=== PATIENT | female | born 2000 | race Caucasian/White ===

== ENCOUNTER 2024-09-01 21:21 | Emergency (ER) | payer OTHER, SELFPAY ==
[2024-09-01 21:26] VITALS: BP 136/87; PULSE 85; RESP 16; TEMP 36.8; O2SAT 99; BMI 25.7
[2024-09-01 21:55] LABS: Basophils # 0.1 10^3/uL (0.0-0.1); Basophils % 0.5 %; Eosinophils # 0.2 10^3/uL (0.0-0.8); Eosinophils % 1.6 %; Hematocrit 40.7 % (36-47); Lymphocytes # 2.7 10^3/uL (0.8-4.8); Lymphocytes % 25.7 %; Mean Corpuscular HGB Conc 32.7 g/dL (30-55); Mean Corpuscular Hemoglobin 28.9 pg (27-33); Mean Corpuscular Volume 88.3 fl (85-98); Mean Platelet Volume 10.5 fL (7.4-10.4); Monocytes # 0.8 10^3/uL (0.2-0.9); Monocytes % 7.9 %; Neutrophils % 63.9 %; Nucleated Red Blood Cells % 0 %; Platelet Count 332 10^3/cmm (157-399); Red Blood Count 4.61 10^6/uL (3.85-5.65); White Blood Count 10.48 10^3/uL (3.29-11.43)
[2024-09-01] MEDS: cefTRIAXone 1,000 mg SDV 1000 MG IVP (21:57)
[2024-09-01 22:00] VITALS: BP 97/53; PULSE 59; RESP 16; O2SAT 100
--- NOTE | 2024-09-01 22:23 | ED_ITS ---
HPI - Animal Bite 2 General: Chief Complaint: Animal Bite Stated Complaint: cat bite left hand Time Seen by Provider: 09/01/24 21:28 Source: patient Mode of arrival: ambulatory Limitations: no limitations History of Present Illness: Patient is a 24-year-old female presenting to the emergency department complaining of cat bite that occurred couple days ago. 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 Patient was seen in urgent care and started on Augmentin, however states that she has a history of resistance to Augmentin in the past and the infection spread to where she needed to come into the hospital for IV antibiotics. She is concerned of the amount of pain and swelling currently, the bite is to the palmar aspect of the left MCP of the second finger. She is denying any fever, nausea vomiting, or other symptoms at this time. Vitals normal at this time. complaint: animal bite Onset (ago): day(s) Animal: cat Description of animal: immunizations UTD Mechanism: bite Location - Extremities: Left: hand Context: other (Examining animal for vet school) Associated symptoms: Deny chills, fever(s) or headache(s) Related Data Allergies Allergy/AdvReac Type Severity Reaction Status Date / Time No Known Allergies Allergy Verified 09/01/24 21:32 Review of Systems 2 General: Reports: 10 or more systems reviewed and unremarkable except in HPI and below Const: Denies: fever(s) or chills Card: Denies: chest pain Resp: Denies: dyspnea GI: Denies: abdominal pain, nausea, vomiting or diarrhea Musc: Denies: extremity pain or joint pain Skin/Breast: Reports: skin pain, skin swelling and non-healing lesions (Cat bite to left hand); Denies: rash Neuro: Denies: headache(s) [facility] ED 2 Female Reproductive History: Date of last menstrual period: 08/18/24 Physical Exam 2 Const: COMMON NORMALS: no acute distress, average body habitus, patient oriented x3, no limitations, healthy appearing, alert and well nourished HENMT: COMMON NORMALS: normocephalic and atraumatic HEAD & SCALP: n ormocephalic and atraumatic Neck/C-Spine: COMMON NORMALS: full ROM, no lymphadenopathy, supple and no meningeal signs Resp: COMMON NORMALS: normal respiratory effort, No use of accessory muscles and clear to auscultation bilaterally AUSCULTATION: clear to auscultation bilaterally Cardio: COMMON NORMALS: regular rate and regular rhythm RATE: regular rate RHYTHM: regular rhythm Extremity: COMMON NORMALS: full ROM and capillary refill normal Neuro: COMMON NORMALS: patient oriented x3 SENSORIUM/ORIENTATION: Yes alert MENINGEAL SIGNS: Yes no meningeal signs Skin: COMMON NORMALS: turgor normal NARRATIVE SKIN EXAM: Small linear wound to palmar aspect of left second MCP. Surrounding erythema, no palpable fluctuance. No active draining at this time. area is tender to palpation. No red streaking proximally. GENERAL SKIN EXAM: turgor normal Course 2 Vital Signs: Vital signs: Vital Signs Temperature 98.2 F 09/01/24 21:26 Pulse Rate 59 L 09/01/24 22:00 Respiratory Rate 16 09/01/24 22:00 Blood Pressure 97/53 09/01/24 22:00 Pulse Oximetry 100 09/01/24 22:00 Oxygen Delivery Me thod Room Air 09/01/24 22:00 MDM - Animal Bite Medical Decision Making Patient was bit by cat a couple days ago started on Augmentin. Was concerned of the amount of pain and swelling, also reported a history of needing IV antibiotics. At this time her lab work is unremarkable, there are no concerning signs of an abscess, and no reason for admission for IV antibiotics will continue outpatient therapy as she is technically not felt this as well due to only having a couple of days worth of the antibiotics. However with any worsening she is instructed to return for further evaluation. She endorses understanding will be discharged home at this time. Her vitals have been stable throughout ED course. Lab Data 09/01/24 21:49 09/01/24 21:49 Laboratory Results WBC 10.48 10^3/uL (3.29-11.43) 09/01/24 21:49 RBC 4.61 10^6/uL (3.85-5.65) 09/01/24 21:49 Hgb 13.30 g/dL (11.27-16.99) 09/01/24 21:49 Hct 40.7 % (36-47) 09/01/24 21:49 MCV 88.3 fl (85-98) 09/01/24 21:49 MCH 28.9 pg (27-33) 09/01/24 21:49 MCHC 32.7 g/dL (30-55) 09/01/24 21:49 RDW 13.0 % (12.1-15.1) 09/01/24 21:49 Plt Count 332 10^3/cmm (157-399) 09/01/24 21:49 MPV 10.5 fL (7.4-10.4) H 09/01/24 21:49 Neut % (Auto) 63.9 % 09/01/24 21:49 Lymph % (Auto) 25.7 % 09/01/24 21:49 [place] % (Auto) 7.9 % 09/01/24 21:49 Eos % (Auto) 1.6 % 09/01/24 21:49 Baso % (Auto) 0.5 % 09/01/24 21:49 Neut # (Auto) 6.70 10^3/uL (1.8-7.7) 09/01/24 21:49 Lymph # (Auto) 2.7 10^3/uL (0.8-4.8) 09/01/24 21:49 [place] # (Auto) 0.8 10^3/uL (0.2-0.9) 09/01/24 21:49 Eos # (Auto) 0.2 10^3/uL (0.0-0.8) 09/01/24 21:49 Baso # (Auto) 0.1 10^3/uL (0.0-0.1) 09/01/24 21:49 Nucleated RBC % (auto) 0 % 09/01/24 21:49 Nucleated RBCs # 0.0 /100WBC 09/01/24 21:49 Sodium 138 mmol/L (136-145) 09/01/24 21:49 Potassium 3.9 mmol/L (3.5-5.1) 09/01/24 21:49 Chloride 102 mmol/L (98-107) 09/01/24 21:49 Carbon Dioxide 26 mmol/L (22-29) 09/01/24 21:49 Anion Gap 13.9 (5-19) 09/01/24 21:49 BUN 10 mg/dL (6-20) 09/01/24 21:49 Creatinine 0.6 mg/dL (0.5-0.9) 09/01/24 21:49 GFR Calculation 121.8 mL/min (90-130) 09/01/24 21:49 Glucose 105 mg/dL (65-115) 09/01/24 21:49 Calculated Osmolality 285 mOsm/kg (285-295) 09/01/24 21:49 Lactic Acid 1.2 mmol/L (0.5-2.2) 09/01/24 21:49 Calcium 9.2 mg/dL (8.5-10.5) 09/01/24 21:49 Total Bilirubin 0.3 mg/dL (0.15-1.2) 09/01/24 21:49 AST 36 U/L (0-32) H 09/01/24 21:49 ALT 30 U/L (0-33) 09/01/24 21:49 Alkaline Phosphatase 96 U/L (35-105) 09/01/24 21:49 C-Reactive Protein 5.7 mg/L (0.0-4.9) H 09/01/24 21:49 Total Protein 7.2 g/dL (6.6-8.7) 09/01/24 21:49 Albumin 4.7 g/dL (3.5-5.2) 09/01/24 21:49 Globulin 2.5 g/dL (1.3-4.6) 09/01/24 21:49 No radiology studies performed this visit Discharge Plan Discharge Patient Disposition: Home Clinical Impression: Cat bite Condition: Stable Discharge Orders: Discharge ED (Routine); Ordered 09/01/24 Ordered By: Lambert Hernandez Patient Instructions: Animal Bite (ED) Activity Restrictions/Additional Instructions: Continue taking your Augmentin. If pain is persisting, swelling increases, you notice red streaking, or you have other concerning signs or symptoms please return as discussed. Continue applying ice and taking Tylenol/ibuprofen for pain. Coding Level of Care Code ED Regional Sales Manager for Jarek Pruitt
[2024-09-01 22:24] LABS: Alanine Aminotransferase 30 U/L (0-33); Albumin Level 4.7 g/dL (3.5-5.2); Alkaline Phosphatase 96 U/L (35-105); Anion Gap 13.9 (5-19); Aspartate Amino Transferase 36 U/L (0-32); Blood Urea Nitrogen 10 mg/dL (6-20); C Reactive Protein 5.7 mg/L (0.0-4.9); Calcium 9.2 mg/dL (8.5-10.5); Carbon Dioxide 26 mmol/L (22-29); Chloride 102 mmol/L (98-107); Creatinine Clr Calc Pharmacy 141.0198; Globulin 2.5 g/dL (1.3-4.6); Glomerular Filtration Rate 121.8 mL/min (90-130); Glucose 105 mg/dL (65-115); Lactic Sepsis W/Reflex 1.2 mmol/L (0.5-2.2); Osmolality Calculated 285 mOsm/kg (285-295); Potassium 3.9 mmol/L (3.5-5.1); Sodium 138 mmol/L (136-145); Total Bilirubin 0.3 mg/dL (0.15-1.2); Total Protein 7.2 g/dL (6.6-8.7)
[2024-09-01 22:40] VITALS: BP 109/67; PULSE 83; RESP 16; O2SAT 98
== END 2024-09-01 22:39 | disposition home or self-care (01) ==
PROVIDERS: Emergency Provider Physician Assistant
DX: S61.255A Open bite of left ring finger without damage to nail, initial encounter (principal); W55.01XA Bitten by cat, initial encounter
CPT/HCPCS: 36415; 80053; 83605; 85025; 86140; 96374; 99284; J0696